=== PATIENT | female | born 1970 ===

== ENCOUNTER 2018-05-28 15:35 | Outpatient (CLI) | payer BC | END 2018-05-28 15:36 | disposition home or self-care (01) | LOC: BICMAMMO 15:35 | PROVIDERS: ATTEND Advanced Practice Midwife | DX: Z12.31 Encounter for screening mammogram for malignant neoplasm of breast (principal); Z80.3 Family history of malignant neoplasm of breast | CPT/HCPCS: 77063; 77067 ==

== ENCOUNTER 2019-05-05 14:21 | Outpatient (CLI) | payer BC ==
--- NOTE | 2019-05-05 15:11 | MMO ---
Right Breast MAMMO Unilat Diag DDI RT+DMITRY. CLINICAL HISTORY: Patient is 49 years old and is seen for additional evaluation requested from prior study. The patient has the following family history of breast cancer: paternal aunt, at age 50, malignant (generic). The patient has no personal history of cancer. The patient has a history of left Ultrasound Guided Core Biopsy in 2016 - benign. VIEWS: The views performed were: right craniocaudal spot compression with tomosynthesis and right mediolateral with tomosynthesis. FILMS COMPARED: The present examination has been compared to prior imaging studies performed at 04/01/2019, and at [facility] on 05/28/2018 and 05/05/2019. This study has been interpreted with the assistance of computer-aided detection. MAMMOGRAM FINDINGS: There are scattered fibroglandular densities. There is a stable asymmetry seen in the CC view only seen in the outer region of the right breast. There are no suspicious masses, suspicious calcifications, or new areas of architectural distortion. IMPRESSION: THERE IS NO MAMMOGRAPHIC EVIDENCE OF MALIGNANCY. A ROUTINE FOLLOW-UP MAMMOGRAM IN 1 YEAR IS RECOMMENDED. THE RESULTS OF THIS EXAM WERE SENT TO THE PATIENT. ACR BI-RADS Category 2 - Benign finding MAMMOGRAPHY NOTE: 1. A negative mammogram report should not delay a biopsy if a dominant of clinically suspicious mass is present. 2. Approximately 10% to 15% of breast cancers are not detected by mammography. 3. Adenosis and dense breasts may obscure an underlying neoplasm. Reported by: GUS FRAGOSO MD Electonically Signed: [id number]
--- NOTE | 2019-05-05 16:02 | ULT ---
FOCUSED ULTRASOUND OF RIGHT BREAST: Date: 05/05/19 COMPARISON: None. HISTORY: Focal asymmetry lateral aspect of right breast. FINDINGS: Focused ultrasound of the lateral right breast provided. Images demonstrate dense breast tissue later ally, correlating with mammographic finding. There are multiple subcentimeter benign cysts within the dense breast tissue. No solid mass or abnormal shadowing. IMPRESSION: BI-RADS Category 2 - Benign findings. Recommend annual screening mammography. POS: OFF
== END 2019-05-05 14:22 | disposition home or self-care (01) ==
LOC: BICMAMMO 14:21
PROVIDERS: ATTEND Advanced Practice Midwife
DX: R92.2 Inconclusive mammogram (principal); Z80.3 Family history of malignant neoplasm of breast
CPT/HCPCS: G0279